=== PATIENT | female | born 1985 | race Caucasian/White ===

== ENCOUNTER 2018-06-07 20:59 | Emergency (ER) | payer SELFPAY ==
[2018-06-07 20:59] VITALS: BMI 33.7
[2018-06-07 21:10] VITALS: O2SAT 99
--- NOTE | 2018-06-07 21:54 | C.PDOC ---
History Of Present Illness 32 year old female complains of 5 day history of throat pain and points to neck. She reports feeling something stuck in her throat. Patient states she ate fish 2 weeks ago and unsure if she swallowed bone. She went to clinic today and they told her to see ENT. Patient came to ED because she has pain when swallowing but able to solid and liquids. Time Seen by Provider: 06/07/18 21:13 Chief Complaint (Nursing): ENT Problem History Per: Patient History/Exam Limitations: None Onset/Duration Of Symptoms: Days Past Medical History Reviewed: Historical Data, Nursing Documentation, Vital Signs Vital Signs: Last Vital Signs Temp 98.5 F 06/07/18 21:08 Pulse 73 06/07/18 21:08 Resp 19 06/07/18 21:08 BP 119/68 06/07/18 21:08 Pulse Ox 99 06/07/18 21:08 - Medical History PMH: No Chronic Diseases Surgical History: - [facility] Procedures EXCISION OF ABDOMEN SKIN, EXTERNAL APPROACH, DIAGNOSTIC (09/22/15) EXTRACTION OF POC, LOW CERVICAL, OPEN APPROACH (09/22/15) LOW CERVICAL (08/06/13) OCCLUSION OF BILATERAL FALLOPIAN TUBES, OPEN APPROACH (09/22/15) SURG INDUCT LABOR NEC (08/06/13) Family History: States: Unknown Family Hx - Social History Hx Alcohol Use: No Hx Substance Use: No - Immunization History Hx Tetanus Toxoid Vaccination: No Hx Influenza Vaccination: No Hx Pneumococcal Vaccination: No Review Of Systems Except As Marked, All Systems Reviewed And Found Negative. ENT: Positive for: Throat Pain Physical Exam - Physical Exam Appears: Non-toxic, No Acute Distress Skin: Normal Color, Warm Head: Atraumatic, Normacephalic Eye(s): bilateral: Normal Inspection, EOMI Ear(s): Bilateral: Normal Nose: Normal, No Flaring, No Discharge Oral Mucosa: Moist Tongue: Normal Appearing, No Swelling Lips: Normal Appearing, No Swelling Teeth: Normal Dentition Throat: Normal, No Erythema, No Exudate, No Drooling, No Mass, No Other (foreign body) Neck: Normal ROM Lymphatic: Normal Exam, No Adenopathy Chest: Symmetrical Cardiovascular: Rhythm Regular, No Murmur Respiratory: Normal Breath Sounds, No Rales, No Rhonchi, No Wheezing, No Plerual Rub Extremity: Bilateral: Atraumatic, Normal Color And Temperature, Normal ROM Neurological/Psych: Oriented x3, Normal Speech ED Course And Treatment O2 Sat by Pulse Oximetry: 99 Medical Decision Making Medical Decision Making: Impression: FB sensation in throat Plan: soft tissue neck xray, viscous lidocaine Progress: Xray viewed by me and Dr Garcia with no visible foreign body. Patient still complained of pain but able to speak full sentences and tolerate her own secretions. Patient advised to follow up with ENT Disposition Counseled Patient/Family Regarding: Diagnosis, Need For Followup - Disposition Referrals: Alfred Laboy MD [Staff Provider] - Disposition: HOME/ ROUTINE Disposition Time: 22:41 Condition: STABLE Additional Instructions: Seguimiento con ENT Instructions: Foreign Body, Swallowed, Adult (DC) Forms: [employer] (Portuguese) Print Language: CITIZEN OF [place] - [place] Present On Arrival: None - Clinical Impression Clinical Impression: Sensation of foreign body in esophagus
[2018-06-07 22:49] VITALS: BP 130/86; PULSE 98; RESP 17; TEMP 98.2
--- NOTE | 2018-06-08 08:59 | RAD ---
Date of service: 06/07/2018 PROCEDURE: X-ray soft tissue neck HISTORY: throat pain, swallowed fish bone 2 wks ago COMPARISON: Not available TECHNIQUE: AP and lateral radiographs FINDINGS: The tracheal air column is midline in position. There is no radiopaque foreign body identified. The retropharyngeal soft tissues are normal in width. The cervical spine is grossly normal in appearance. IMPRESSION: No radiopaque foreign body identified The preliminary findings for this examination were reported by [facility] at 11:06 p.m. on 06/07/2018. There is discordance of this report with the preliminary findings.
== END 2018-06-07 22:48 | disposition home or self-care (01) ==
LOC: C.ER 20:59
DX: R19.8 Other specified symptoms and signs involving the digestive system and abdomen (principal)